=== PATIENT | male | born 1985 | race Caucasian/White ===

== ENCOUNTER 2017-07-05 20:57 | Emergency (ER) | payer BC ==
[2017-07-05 22:51] LABS: APPEARANCE CLEAR (CLEAR); BILIRUBIN NEGATIVE (NEGATIVE); COLOR YELLOW (YELLOW); GLUCOSE NEGATIVE (NEGATIVE); KETONE NEGATIVE (NEGATIVE); NITRITE NEGATIVE (NEGATIVE); PROTEIN NEGATIVE (NEGATIVE); UROBILINOGEN NORMAL (NORMAL)
== END 2017-07-05 23:41 | disposition home or self-care (01) ==
LOC: D.ER 20:57
PROVIDERS: Emergency Medicine
DX: M54.5 Low back pain (principal); F17.200 Nicotine dependence, unspecified, uncomplicated

== ENCOUNTER 2017-12-04 16:55 | Emergency (ER) | payer BC ==
[~2017-12-04] VITALS: Ht 182.9 cm; Wt 100.0 kg
[2017-12-04 17:11] VITALS: Ht 182.9 cm; Wt 100.0 kg
[2017-12-04 19:11] VITALS: BP 117/69
== END 2017-12-04 19:12 | disposition home or self-care (01) ==
LOC: D.ER 16:55
DX: S40.011A Contusion of right shoulder, initial encounter (principal); X58.XXXA Exposure to other specified factors, initial encounter; Y93.89 Activity, other specified; Y92.019 Unspecified place in single-family (private) house as the place of occurrence of the external cause; F17.200 Nicotine dependence, unspecified, uncomplicated